=== PATIENT | female | born 1965 | race Caucasian/White ===

== ENCOUNTER 2017-01-08 09:46 | Outpatient (CLI) ==
[2016-04-11 14:33] VITALS: BMI 25.7
[2017-01-08 10:30] LABS: BASOPHILS % (AUTO) 0.4 % (0.0-3.0); EOSINOPHILS # (AUTO) 0.1 K/ul (0.0-0.7); EOSINOPHILS % (AUTO) 1.6 % (0.0-7.0); HEMATOCRIT 36.2 % (37.0-47.0); HEMOGLOBIN 11.7 g/dl (12.0-16.0); IMMATURE GRANULOCYTE % (AUTO) 0.3 % (0.0-5.0); LYMPHOCYTES # (AUTO) 1.8 K/uL (0.60-3.4); LYMPHOCYTES % (AUTO) 23.9 (10.0-50.0); MEAN CORPUSCULAR HEMOGLOBIN 29.1 pg (27.0-31.0); MEAN CORPUSCULAR HGB CONC 32.3 (31.8-35.4); MONOCYTES # (AUTO) 0.4 K/uL (0.4-2.0); MONOCYTES % (AUTO) 5.7 (0-10); NEUTROPHILS # (AUTO) 5.3 K/ul (2.0-6.9); NEUTROPHILS % (AUTO) 68.1; PLATELET COUNT 249 10^3/uL (140-440); RED BLOOD COUNT 4.02 10^6/ul (4.20-5.40); WHITE BLOOD COUNT 7.71 K/ul (4.6-10.2)
--- NOTE | 2017-01-08 10:53 | DI ---
EXAM: Four views of the left knee. History: Left knee pain. Findings: No acute fracture or dislocation. Joint spaces are preserved. No abnormal calcification s or radiopaque foreign bodies. Impression: No acute osseous abnormality. No significant degenerative joint disease.
--- NOTE | 2017-01-08 11:00 | CT ---
EXAM: CT cervical spine without contrast HISTORY: Cervicalgia COMPARISON: None TECHNIQUE: CT cervical spine performed without intravenous contrast. Coronal and sagittal reformat benjamin images obtained. FINDINGS: Patient is status post anterior spinal fusion C4-C5-C6 and posterior spinal fusion C4-C5 -C6 (only involving the left at C4 and C5). Hardware appears intact. Vertebral bodies normal heigh t. Straightening of the normal cervical lordosis. No fracture. No subluxation. Multilevel margin al osteophyte formation. Multilevel facet and uncovertebral hypertrophy. Mild intervertebral disc space narrowing C6-C7. Prevertebral soft tissues appear normal. C2-C3: No central canal or neural foraminal narrowing C3-C4: No central canal or neural foraminal narrowing. C4-C5: Central canal obscured secondary to streak artifact. No definite central canal or neural fo raminal narrowing. C5-C6: Central canal obscured secondary to streak artifact. No definite central canal or neural fo raminal narrowing. C6-C7: Central canal obscured secondary to streak artifact. No definite central canal narrowing. P osterior disc osteophyte complex causing mild right neural foraminal narrowing. C7-T1: No central canal or neural foraminal narrowing IMPRESSION: 1. No fracture or subluxation. 2. Anterior and posterior spinal fusion C4-C6. 3. Mild degenerative changes. Please see segmental analysis.
[2017-01-08 11:09] LABS: ERYTHROCYTE SEDIMENTATION RATE 43 mm/hr (0-20); ESR INTERNAL QC INTERNAL QC VALID
[2017-01-08 11:12] LABS: ALBUMIN 3.4 g/dL (3.4-5.0); ALBUMIN/GLOBULIN RATIO 0.97; ANION GAP 12.8; BILIRUBIN,TOTAL 0.37 mg/dL (0.00-1.20); BUN/CREATININE RATIO 10.11; CALCIUM 9.1 mg/dL (8.2-10.2); CREATININE 0.89 mg/dL (0.60-1.30); POTASSIUM 3.8 mmol/L (3.5-5.10); TOTAL PROTEIN 6.9 g/dL (6.4-8.2)
[2017-01-09 07:45] LABS: RHEUMATOID ARTHRITIS FACTOR < 10.0 IU/mL (0.0-13.9)
[2017-01-09 08:04] LABS: C-REACTIVE PROTEIN 3.8 mg/L (0.0-4.9)
[2017-01-10 07:15] LABS: ANTI-NUCLEAR ANTIBODY SCREEN Negative (Negative)
== END 2017-01-08 09:47 | disposition home or self-care (01) ==
LOC: RAD 09:46
PROVIDERS: ATTEND Nurse Practitioner Family
DX: M54.2 Cervicalgia (principal); M54.9 Dorsalgia, unspecified; R53.83 Other fatigue; M25.50 Pain in unspecified joint; M25.562 Pain in left knee; Z00.00 Encounter for general adult medical examination without abnormal findings; Z98.890 Other specified postprocedural states
CPT/HCPCS: 36415; 80053; 80061; 82306; 82607; 84443; 85025; 85651; 86038; 86140; 86430

== ENCOUNTER 2017-01-09 14:30 | Outpatient (CLI) ==
[2016-04-11 14:33] VITALS: BMI 25.7
--- NOTE | 2017-01-09 15:06 | CT ---
EXAM: CT lumbar spine without contrast. HISTORY: Previous lumbar surgery. COMPARISON: None available. TECHNIQUE: Multiple axial images of the lumbar spine were obtained without intravenous contrast. I mages were reformatted in the sagittal and coronal planes. FINDINGS: There is approximately 0.2 cm retrolisthesis of L2 on L3. Alignment is otherwise normal. Prevertebral body heights are maintained. Suspect previous interbody fusion at L5-S1. No osseous incorporation identified. Disc heights are normal otherwise. No acute fracture identified. Parav ertebral soft tissues are without acute abnormality. T12-1: No neural compromise. L1-2: Posterior disc bulge causes mild central canal stenosis. L2-3: Disc osteophyte formation, facet arthropathy and thickening of ligamentum flavum with flatten ing of the ventral thecal sac and minimal right neural foraminal narrowing. L3-4: Disc osteophyte formation, facet arthropathy and thickening of the ligamentum flavum with fla ttening of the ventral thecal sac. L4-5: Disc osteophyte formation and facet arthropathy with flattening of the ventral thecal sac and mild neural foraminal narrowing. L5-S1: Disc osteophyte formation and facet arthropathy with moderate neural foraminal narrowing. IMPRESSION: 1. No fracture. 2. Generally mild degenerative changes as described.
== END 2017-01-09 14:31 | disposition home or self-care (01) ==
LOC: RAD 14:30
PROVIDERS: ATTEND Nurse Practitioner Family
DX: M54.9 Dorsalgia, unspecified (principal); Z98.890 Other specified postprocedural states

== ENCOUNTER 2017-01-18 08:56 | Outpatient (CLI) ==
[2016-04-11 14:33] VITALS: BMI 25.7
--- NOTE | 2017-01-24 11:42 | MAMMO ---
EXAM: Bilateral digital screening mammogram History: Screening Comparison: Bilateral mammogram 11/16/2014 Findings: MLO and CC views of bilateral breasts demonstrate scattered fibroglandular breast parench yma. Stable benign intramammary lymph node within the upper-outer quadrant of the left breast. There are no dominant masses, no suspicious microcalcifications and no architectural distortion. Impression: Benign stable mammogram. Recommend followup routine screening mammography in 1 year. BIRADS 2
== END 2017-01-18 08:57 | disposition home or self-care (01) ==
LOC: RAD 08:56
PROVIDERS: ATTEND Obstetrics & Gynecology
DX: Z12.31 Encounter for screening mammogram for malignant neoplasm of breast (principal)